=== PATIENT | male | born 1975 | race African-American/Black ===

== ENCOUNTER 2018-07-20 11:47 | Emergency (ER) | payer SELFPAY ==
[~2018-07-20] VITALS: Ht 182.9 cm; Wt 95.0 kg
[2018-07-20 12:46] LABS: BASOPHILS # (AUTO) 0.04 x10^3/uL (0-0.1); BASOPHILS % (AUTO) 0 % (0-1); EOSINOPHILS % (AUTO) 2 % (1-7); LYMPHOCYTES # (AUTO) 0.99 x10^3/uL (1-3.4); LYMPHOCYTES % (AUTO) 11 % (22-44); MD NO; MEAN CORPUSCULAR HEMOGLOBIN 29.5 pg (27.5-34.5); MEAN CORPUSCULAR HGB CONC 33.1 g/dL (33.2-36.2); MEAN CORPUSCULAR VOLUME 89.2 fL (81-97); MEAN PLATELET VOLUME 7.9 fL (7.4-10.4); MONOCYTES # (AUTO) 0.54 x10^3/uL (0.2-0.8); MONOCYTES % (AUTO) 6 % (2-9); NEUTROPHILS # (AUTO) 7.34 x10^3/uL (1.8-6.8); NEUTROPHILS % (AUTO) 81 % (42-75); PLATELET COUNT 227 x10^3/uL (130-400); RED BLOOD COUNT 5.35 x10^6/uL (4.38-5.82); RED CELL DISTRIBUTION WIDTH 12.8 % (9.4-14.8)
[2018-07-20 12:57] LABS: ALBUMIN 3.3 g/dL (3.4-5.0); ANION GAP 9 mmol/L (5-15); CALCIUM 9.2 mg/dL (8.5-10.1); CHLORIDE 102 mmol/L (98-107); CREATININE 1.24 mg/dL (0.7-1.3)
[2018-07-20] MEDS ORDERED: INDOMETHACIN 50 MG CAPSULE PO ONE (13:30)
[2018-07-20] MEDS ORDERED: COLCHICINE 0.6 MG TABLET PO ONE (13:30)
[2018-07-20] MEDS ORDERED: COLCHICINE 0.6 MG TABLET ONE (13:57)
[2018-07-20] MEDS ORDERED: INDOMETHACIN 50 MG CAPSULE ONE (13:57)
[2018-07-20 14:07] VITALS: BP 168/101
== END 2018-07-20 14:50 | disposition home or self-care (01) ==
LOC: ED 13:30
DX: M10.072 Idiopathic gout, left ankle and foot (principal); M10.071 Idiopathic gout, right ankle and foot; M13.872 Other specified arthritis, left ankle and foot; M13.871 Other specified arthritis, right ankle and foot
CPT/HCPCS: 36415; 71045; 80048; 82040; 83605; 84550; 85025; 87040; 93970; 99285